=== PATIENT | female | born 1990 | race Native Hawaiian/Other Pacific Islander ===

== ENCOUNTER 2019-03-04 22:22 | Emergency (ER) | payer OTHER ==
[~2019-03-04] VITALS: Ht 170.2 cm; Wt 93.0 kg
[2019-03-04 22:30] VITALS: BP 122/79; TEMP 98.3
[2019-03-04] MEDS ORDERED: 904272561 PO (23:01)
[2019-03-04] MEDS ORDERED: HYDROXYZINE HYD25 MG PO (23:02)
== END 2019-03-05 03:28 | disposition home or self-care (01) ==
LOC: ED 22:22
PROC: 0H9FXZZ Drainage of Right Hand Skin, External Approach (ICD-10-PCS; principal; 2019-03-04)
DX: L02.511 Cutaneous abscess of right hand (principal); R22.31 Localized swelling, mass and lump, right upper limb; Y92.89 Other specified places as the place of occurrence of the external cause
CPT/HCPCS: 87070; 87077; 87185; 87186; 87205; 99282

== ENCOUNTER 2020-07-17 17:12 | Emergency (ER) | payer OTHER ==
[~2020-07-17] VITALS: Ht 170.2 cm; Wt 108.9 kg
[~2020-07-17 17:12] MED LIST: 904272561 PO; HYDROXYZINE HYD25 MG PO
[2020-07-17 17:20] VITALS: BP 149/92; TEMP 98.3
[2020-07-17 17:53] LABS: PLATELET COUNT 285 K/uL (152-353)
[2020-07-17 18:00] LABS: POTASSIUM 3.8 mmol/L (3.6-5.2)
== END 2020-07-17 19:13 | disposition home or self-care (01) ==
LOC: ED 17:12
PROVIDERS: Family Medicine
DX: K52.89 Other specified noninfective gastroenteritis and colitis (principal); R10.84 Generalized abdominal pain
CPT/HCPCS: 80053; 81000; 81025; 85027; 96360; 96374; 96375; 99284; J1885; J2405